=== PATIENT | female | born 1975 ===

== ENCOUNTER 2021-03-16 21:24 | Emergency (ER) | payer OTHER, SELFPAY ==
[2021-03-16 22:30] VITALS: BP 118/71; PULSE 97; RESP 18; TEMP 36.8; O2SAT 98; BMI 29.9
--- NOTE | 2021-03-16 23:41 | ED.GENADULT ---
HPI - General Adult General Chief complaint: General Medical Stated complaint: Multiple complaints Time Seen by Provider: 03/16/21 22:50 Source: patient and family () Mode of arrival: ambulatory History of Present Illness HPI narrative: 45-year-old female with complaints of frontal headache and nasal congestion with left ear pain that has been ongoing for a few days. Patient reports nasal congestion but denies fever, chills, sore throat. Related Data Allergies Allergy/AdvReac Type Severity Reaction Status Date / Time No Known Allergies Allergy Unverified 03/16/21 23:35 Review of Systems Review of Systems: Pertinent positives and negatives as stated in HPI 10 point review of systems is otherwise negative. PMFSH Past Medical History Source: nursing notes reviewed Social History Social History Advance Directives: No Patient : No Physical Exam Vital Signs: Vital Signs: Last Vital Signs Temp 98.2 F 03/16/21 22:30 Pulse 97 03/16/21 22:30 Resp 18 03/16/21 22:30 BP 118/71 03/16/21 22:30 Pulse Ox 98 03/16/21 22:30 Body Mass Index 29.9 VITAL SIGNS: Reviewed. GENERAL: Well developed, well nourished, in no acute distress. HEAD: Normocephalic/atraumatic, tenderness to palpation over frontal sinus EYES: PERRLA, EOMI intact without pain, no nystagmus EARS: Ext canals without abnormality, TMs non-bulging and non-erythematous NOSE: Bilateral nasal congestion noted OROPHARYNX: no oral lesions noted, posterior pharynx clear and non-erythematous without noted tonsillar enlargement/erythema/exudates NECK: Supple, no adenopathy LUNGS: Normal breath sounds. No adventitious sounds or accessory muscle use. SpO2<98> CARDIOVASCULAR: Regular rate and rhythm without noted murmurs ABDOMEN: Soft, non-tender, non-distended with bowel sounds. SKIN: Inspection of the skin reveals no rashes NEUROLOGIC: Alert and oriented x 4. Strength and sensation to light touch were grossly intact x 4. Course Course Course Narrative: This is a 45-year-old female with history and clinical presentation consistent with sinusitis and low suspicion for bacterial in etiology at this time. Patient was provided with combination analgesics and discharged home in stable condition with instructions to follow-up with her primary care provider. Discharge Plan Discharge Clinical Impression: Sinusitis Patient Disposition: Home, Self-Care Instructions: Sinusitis (ED), Warm Compress or Soak (ED) Additional Instructions: 1. Recomendar un humidificador de vapor fr?o junto a la cama para un alivio adicional de los s?ntomas. 2. Tylenol / ibuprofeno de venta markell seg?n sea necesario para el dolor de los senos nasales. 3. Magdaleno un seguimiento con loera proveedor de atenci?n primaria en los pr?ximos 2-3 d?as para obed reevaluaci?n y un tratamiento ambulatorio adicional. Regrese a la ren de emergencias si raciel s?ntomas empeoran de manera aguda. Referrals: Physician,Unknown [Primary Care Provider] - 2 days Print Language: Greenlandic
[2021-03-16] MEDS: Ibuprofen 400 MG TABLET PO (23:46)
[2021-03-16] MEDS: Acetaminophen 325 MG TABLET 975 MG PO (23:46)
== END 2021-03-17 00:36 | disposition home or self-care (01) ==
PROVIDERS: Emergency Provider Student in an Organized Health Care Education/Training Program
DX: J32.9 Chronic sinusitis, unspecified (principal)
CPT/HCPCS: 99283

== ENCOUNTER 2024-09-15 11:24 | Emergency (ER) | payer OTHER, SELFPAY ==
--- NOTE | ~2024-09-15 | US_ITS ---
CLINICAL HISTORY: flank pain US Renal Comparison: None Findings: Left kidney normal size and echotexture, 12.6 cm length. No collecting system dilatation of either kidney. Normal color Doppler. IMPRESSION: 1. Normal left kidney. This document has been electronically signed by: Darwin Henriquez MD on 09/15/2024 12:52:44
--- NOTE | 2024-09-15 11:34 | ED.GENADULT ---
HPI - General Adult General Chief complaint: Urogenital-Female Stated complaint: kidney pain Time Seen by Provider: 09/15/24 11:52 Source: patient Mode of arrival: ambulatory Limitations: no limitations History of Present Illness ED Provider: PHUONG MURO narrative: 49 yo female with PMH of DM, sinusitis on doxy currently since 09/07, not on blood thinners here with 3 days left lower back pain but no b/b incontinence no saddle anesthesia, no IVDA, no fevers, notes it hurts to move and walk. She states she just woke up like this. Takes naproxen without relief. No fevers. Has small boil on abdominal wall this is recurrent for her. MD complaint: back pain Onset (ago): day(s) (3) Location: back Radiation: non-radiation Severity: moderate Quality: aching and constant Pain Consistency: constant Relieving factors: none Exacerbating factors: movement Associated symptoms: other (abd wall rash) Treatments prior to arrival: NSAID Related Data Previous Rx's ?Medication ?Instructions ?Recorded cephalexin 500 mg capsule 500 mg PO QID 7 days #28 caps 09/15/24 cyclobenzaprine 10 mg tablet 10 mg PO TID PRN muscle spasm #20 09/15/24 tabs lidocaine 5 % topical patch 1 patch topical DAILY #30 ea 09/15/24 Allergies Allergy/AdvReac Type Severity Reaction Status Date / Time No Known Allergies Allergy Verified 09/15/24 11:36 Review of Systems Review of Systems: Constitutional : No Weight loss, No Fever, No Chills, ENT/Mouth : No Hearing loss, No Ear Pain, No Nasal Congestion, No Sinus Pain, No Hoarseness, No sore throat, No Rhinorrhea, No Swallowing Difficulty Cardiovascular : No Chest Pain, No SOB Respiratory : No Cough, No Dyspnea Gastrointestinal : No Nausea, No Vomiting, No Diarrhea, No abdominal Pain, No Hematochezia, No Melena Genitourinary : No Dysuria, No Urinary Frequency, No Hematuria, No Urinary Incontinence, Musculoskeletal : positive back pain Skin : pos Skin Lesions, No rash Neuro : No Weakness, No Numbness, No Paresthesias, no loss of bowel or bladder incontinence, no saddle anesthesia All other systems reviewed and negative PMFSH Past Medical History Attestation statement: The following information was validated with the patient. Source: old records reviewed Medical History Diabetes Social History Social History (Updated 09/15/24 @ 12:12 by Sowmya Samson DO) Patient Tobacco Use Status: Never used Tobacco Advance Directives: No Advance Directives Information Provided: No Physical Exam ED Vital Signs: Vital Signs - 24 hr 09/15/24 11:35 09/15/24 14:18 Temperature 98 F Pulse Rate 97 92 Respiratory Rate 18 16 Blood Pressure 137/64 134/76 Pulse Oximetry 98 96 Oxygen Delivery Method Room Air Room Air BMI result Body Mass Index 33.9 Appearance: Alert. Oriented X3. No acute distress. Eyes: Pupils equal, round and reactive to light. ENT: Pharynx normal. Neck: Normal inspection. Neck supple. CVS: Normal heart rate and rhythm. Pulses normal. Respiratory: No respiratory distress. Breath sounds normal. Abdomen: Soft and nontender. R lower under pannus small patch of erythema no abimael abscess or fluctuance felt Back: ttp along L lower paraspinal no CVA ttp Skin: Skin warm and dry. Normal skin color. Normal skin turgor. Extremities: No lower extremity edema. No calf ttp Neuro: Oriented X 3. No motor deficit. No sensory deficit. CN2-12 intact Course Course Course Narrative: This is a Rapid Medical Examination (RME) performed by Nina Aguilera PA-C in triage. Full HPI, ROS, assessment and treatment plan per primary provider in the Main ED. 49 yo female here with left flank pain x3 days. pain radiates to left abd. assoc dysuria and dark yellow urine. no hematuria. Plan: labs, UA Medications Administered Discontinued Medications Generic Name Dose Route Start Last Admin Trade Name Freq PRN Reason Stop Dose Admin Hydrocodone Bitart/Acetaminophen 1 tab 09/15/24 12:03 09/15/24 12:22 Hydrocodone Bit/Acetam 5/325 Tablet PO 09/15/24 12:04 1 tab ONCE ONE Administration Cyclobenzaprine HCl 10 mg 09/15/24 12:03 09/15/24 12:22 Cyclobenzaprine Hcl 10 Mg Tablet PO 09/15/24 12:04 10 mg ONCE ONE Administration Medical Decision Making Medical Decision Making MDM Narrative: 49 yo female with PMH of DM, sinus infection still on doxy since 09/07 now here with c/o atraumatic L back pain without any concerning features for cauda equina she has mild cellulitis without fevers n/v/d at this time will obtain basic labs, UA, US to evaluate for any hydronephrosis, start on pain medications. Suspect strain vs renal colic has very mild cellulitis on abd wall would add on cephalexin. Differential Diagnosis Differential Diagnoses: The differential diagnosis associated with the presentation includes back strain, renal colic, cellulitis mild and localized, sciatica Admission/Observation Consideration of admission/observation: Escalation of care including admission/observation considered negative work up stable for DC Lab Data [facility] Lab Attestation statement: I reviewed the patient's lab results. 09/15/24 12:23 09/15/24 12:23 Labs: Lab Results 09/15/24 09/15/24 Range/Units 12:23 13:45 WBC 13.3 H (4.8-10.8) X10*3/uL RBC 4.83 (4.20-5.50) X10*6/uL Hgb 14.1 (12.0-16.0) g/dl Hct 42.8 (37.0-47.0) % MCV 88.6 (80.0-98.0) fL MCH 29.2 (27.0-33.0) pg MCHC 32.9 (31.0-35.0) g/dl RDW 13.9 (11.0-16.0) % Plt Count 287 (160-400) X10*3/uL MPV 10.7 (9.4-12.3) fL Immature Gran % (Auto) 0.5 H (0.0-0.4) % Neut % (Auto) 62.0 (45-73) % Lymph % (Auto) 26.1 (20-40) % [place] % (Auto) 5.9 (2-11) % Eos % (Auto) 5.0 H (0-4) % Baso % (Auto) 0.5 (0-2) % Lymph # (Auto) 3.5 (1.2-4.9) X10*3/uL [place] # (Auto) 0.8 (0.1-1.2) X10*3/uL Eos # (Auto) 0.7 H (0.0-0.4) X10*3/uL Baso # (Auto) 0.1 (0.0-0.2) X10*3/uL Abs Immat Gran (auto) 0.07 H (0.00-0.03) X10*3/uL Absolute Neuts (auto) 8.3 (2.0-8.3) x10*3/uL Absolute Nucleated RBC 0.000 (0.0-0.012) X10*3/uL Nucleated RBC % (auto) 0.0 (0.0-0.2) /100WBC Sodium 143 (135-145) mmol/L Potassium 4.6 (3.3-5.1) mmol/L Chloride 110 H (96-108) mmol/L Carbon Dioxide 26 (22-29) mmol/L Anion Gap 12 (12-20) BUN 13 (9-16) mg/dL Creatinine 0.73 (0.5-1.4) mg/dL Estim Creat Clear Calc 103.6 Estimated GFR > 60 Random Glucose 112 (60-115) mg/dL Calcium 9.4 (8.4-10.2) mg/dL Total Bilirubin 0.2 (0.0-1.0) mg/dL AST 23 (5-31) U/L ALT 18 (0-31) U/L Alkaline Phosphatase 103 (39-117) U/L Total Protein 7.5 (6.5-8.0) g/dL Albumin 3.7 (3.5-5.0) g/dL Lipase 22 (8-78) U/L Urine Color Yellow Urine Appearance Clear Urine pH 6.0 (5.0-9.0) Ur Specific [place] 1.020 (1.005-1.025) Urine Protein Negative (Neg-Trace) mg/dL Urine Glucose (UA) Negative (Negative) mg/dL Urine Ketones Negative (Negative) mg/dL Urine Blood Negative (Negative) Urine Nitrite Negative (Negative) Ur Leukocyte Esterase Trace H (Negative) Independent Interpretation I performed an independent interpretation of an: Ultrasound (normal ) Radiology Impression Discussion of test interpretation with radiology: I have reviewed the radiologist's reading. Independent Historian Clinical information obtained from an independent historian. History obtained from or confirmed by: Other (family) External Record Review External record reviewed: Outpatient record Prescription Management I considered prescription management with: Pain Medication and Antibiotic Discharge Plan Discharge Clinical Impression: Cellulitis, Acute left flank pain Patient Disposition: Home, Self-Care Instructions: Cellulitis (ED), Flank Pain (ED) Additional Instructions: US shows no stone or blockage of the kidney continue doxycycline will add on another antibiotic return for worsening pain, fevers, increased redness, numbness, weakness or any other concerns On a cephalosporin?antibiotic, softer bowel movements are to be expected. Call your provider if you move your bowels more than 4 times a day, your bowel movements are almost all liquid, or you get a rash.?? Prescriptions: New cyclobenzaprine 10 mg tablet 10 mg PO TID PRN (Reason: muscle spasm) Qty: 20 0RF cephalexin 500 mg capsule 500 mg PO QID 7 Days Qty: 28 0RF lidocaine 5 % adhesive patch,medicated 1 patch topical DAILY Qty: 30 0RF Rx Instructions: leave on most painful area for up to 12 hrs Print Language: Azeri
[2024-09-15 11:35] VITALS: BP 137/64; PULSE 97; RESP 18; TEMP 36.6; O2SAT 98; BMI 33.9
[2024-09-15] MEDS: HYDROcodone Bit/Acetam 5/325 TABLET 1 TAB PO (12:22)
[2024-09-15] MEDS: Cyclobenzaprine HCl 10 MG TABLET PO (12:22)
[2024-09-15 12:28] LABS: MANUAL DIFF FLAG NO
[2024-09-15 12:56] LABS: Alanine Aminotransferase 18 U/L (0-31); Albumin Level 3.7 g/dL (3.5-5.0); Alkaline Phosphatase 103 U/L (39-117); Anion Gap 12 (12-20); Aspartate Amino Transferase 23 U/L (5-31); Bilirubin Total 0.2 mg/dL (0.0-1.0); Blood Urea Nitrogen 13 mg/dL (9-16); Calcium 9.4 mg/dL (8.4-10.2); Carbon Dioxide 26 mmol/L (22-29); Chloride 110 mmol/L (96-108); Creatinine Clr Calc Pharmacy 103.6; Estimated Glomerular Filt Rate > 60; Glucose Random 112 mg/dL (60-115); Lipase 22 U/L (8-78); Potassium 4.6 mmol/L (3.3-5.1); Sodium 143 mmol/L (135-145); Total Protein 7.5 g/dL (6.5-8.0)
[2024-09-15 13:02] LABS: Basophils Absolute Auto 0.1 X10*3/uL (0.0-0.2); Basophils Percent Auto 0.5 % (0-2); Eosinophils Absolute Auto 0.7 X10*3/uL (0.0-0.4); Hematocrit 42.8 % (37.0-47.0); Hemoglobin 14.1 g/dl (12.0-16.0); Imm Gran Abs Auto 0.07 X10*3/uL (0.00-0.03); Imm Gran Pct Auto 0.5 % (0.0-0.4); Lymphocytes Absolute Auto 3.5 X10*3/uL (1.2-4.9); Lymphocytes Percent Auto 26.1 % (20-40); Mean Corpuscular HGB Conc 32.9 g/dl (31.0-35.0); Mean Corpuscular Hemoglobin 29.2 pg (27.0-33.0); Mean Corpuscular Volume 88.6 fL (80.0-98.0); Mean Platelet Volume 10.7 fL (9.4-12.3); Monocytes Absolute Auto 0.8 X10*3/uL (0.1-1.2); Monocytes Percent Auto 5.9 % (2-11); Neutrophils Absolute Auto 8.3 x10*3/uL (2.0-8.3); Platelet Count 287 X10*3/uL (160-400); Red Blood Count 4.83 X10*6/uL (4.20-5.50); Red Cell Distribution Width 13.9 % (11.0-16.0); White Blood Count 13.3 X10*3/uL (4.8-10.8)
[2024-09-15 13:51] LABS: Appearance Urine Clear; Color Urine Yellow; Glucose Urine UA Negative (Negative); Leukocyte Esterase Urine Trace (Negative); Nitrite Urine Negative (Negative); UMIC TRIGGER UACC YES; Urine Blood Negative (Negative); Urine Ketones Negative (Negative); Urine Protein Negative (Neg-Trace)
[2024-09-15 14:18] VITALS: BP 134/76; PULSE 92; RESP 16; O2SAT 96
[2024-09-15 14:59] LABS: Bacteria Urine None Seen (None Seen); Hyaline Casts Urine 0-2 /LPF (0-2); RBC Urine 0-2 /HPF (0-2); WBC Urine 0-5 /HPF (0-5)
== END 2024-09-15 15:19 | disposition home or self-care (01) ==
PROVIDERS: Physician Assistant Medical; Emergency Provider Emergency Medicine
DX: L03.311 Cellulitis of abdominal wall (principal); R10.9 Unspecified abdominal pain; E11.9 Type 2 diabetes mellitus without complications
CPT/HCPCS: 36415; 76775; 80053; 81001; 83690; 85025; 87086; 99283; 99284

== ENCOUNTER → 2024-09-15 12:03 | Outpatient (BNV) | payer OTHER, SELFPAY | PROVIDERS: Emergency Provider Emergency Medicine; Visit Provider Radiology Diagnostic Radiology | DX: R10.9 Unspecified abdominal pain (principal) | CPT/HCPCS: 76775 ==